=== PATIENT | male | born 1955 | race Caucasian/White ===

== ENCOUNTER 2024-08-20 18:20 | Inpatient (IN) ==
[2024-08-20 18:47] LABS: Basophils # (auto) 0.02 K/uL (0.00-0.20); Basophils % (auto) 0.1 %; Eosinophils # (auto) 0.01 K/uL (0.00-0.50); Eosinophils % (auto) 0.1 %; Hematocrit (blood only) 40.6 % (42.0-52.0); Hemoglobin 13.7 g/dl (14.0-18.0); Immature Granulocytes # (auto) 0.08 K/uL (0.01-0.20); Immature Granulocytes % (auto) 0.6 %; Lymphocytes # (auto) 2.26 K/uL (1.20-3.40); Lymphocytes % (auto) 16.3 %; Mean Corpuscular Hemoglobin 32.1 pg (25.0-34.0); Mean Corpuscular Hgb Conc 33.7 g/dL (32.0-36.0); Mean Corpuscular Volume 95.1 fL (80.0-100.0); Mean Platelet Volume 9.6 fL (9.4-12.4); Monocytes # (auto) 1.73 K/uL (0.11-0.59); Monocytes % (auto) 12.4 %; Neutrophils % (auto) 70.5 %; Platelet Count 223 K/uL (130-400); RDW Coefficient of Variation 12.8 % (11.5-14.5); RDW Standard Deviation 44.8 fL (36.4-46.3); Red Blood Count 4.27 M/uL (4.70-6.10)
[2024-08-20 19:03] LABS: Albumin Globulin Ratio 1.1 (0.9-2); Albumin Level 4.2 gm/dl (3.4-5.0); BUN Creatinine Ratio 12.2 (10-20); Bilirubin,Total 1.3 mg/dl (0.2-1.0); Calcium 9.3 mg/dl (8.6-10.3); Globulin 3.8 gm/dl (2.5-4.0); Potassium 4.2 mmol/L (3.5-5.1)
[2024-08-20 19:12] LABS: Partial Thromboplastin Ratio 1.1; Partial Thromboplastin Time 29 Seconds (21-31)
--- NOTE | 2024-08-20 20:00 | Emergency Department Note ---
Impression & Plan Cellulitis of right foot, Leukocytosis ED Provider Note NAME: WELLINGTON RIVAS AGE: 69 SEX: M : 1955 ARRIVES VIA: Walk-In INFORMANT: [Patient] ED PROVIDER(S): [Bhavesh Ornelas MD] CHIEF COMPLAINT: Foot pain, toe pain HISTORY OF PRESENT ILLNESS: The patient is a 69-year-old male with neuropathy. He states that he has had 5 days of some discomfort and redness forming in the right foot. Things started with the right first toe but now have spread to the whole foot. There is swelling and erythema, he has had some chills. He was seen at [facility] and referred to the ER for cellulitis and possible osteomyelitis/abscess. The patient states that he does have a blister that broke open on the underside of the right toe, he wonders if this is where things all started. There has been no trauma. He is on blood thinning agents because of pacemaker placement. He did not take his blood thinner yet this evening. No cough or congestion, no vomiting or diarrhea. PMHx/PSHx/Social Hx: See Below PHYSICAL EXAM: GENERAL: Patient is in no acute distress. HEENT: No acute trauma, normocephalic atraumatic, mucous membranes moist, no nasal congestion. NECK: No stridor, no adenopathy, no meningismus, trachea is midline. LUNGS: Clear to auscultation bilaterally, no wheeze, no rhonchi, breath sounds equal. HEART: Without murmurs gallops or rubs, regular rate and rhythm. ABDOMEN: Soft, nontender, no peritonitis. EXTREMITIES: No cyanosis. The patient does have right foot edema and erythema. There is warmth present. There is a opening in the skin to the underside of the right first toe. No gross deformities. No drainage. NEUROLOGIC: Oriented x 3, no acute motor or sensory deficits, no focal weakness. SKIN: No jaundice, no diaphoresis. DIFFERENTIAL DIAGNOSIS: Cellulitis, osteomyelitis, abscess, fracture, gout, among others. EMERGENCY DEPARTMENT PROCEDURES: MEDICAL DECISION MAKING: Patient does have a moderate leukocytosis, this would be consistent with infection. There is a very slight anemia with a hemoglobin of 13.7. There is a normal platelet count. No bandemia. No coagulopathy. No renal failure or significant electrolyte abnormality. No concerning liver enzyme elevation. Lactic acid level is not elevated making sepsis less likely. MRSA nasal swab was negative. Right foot x-ray did not show fracture or osteomyelitis. On exam, the patient had an obvious right foot cellulitis. There was significant swelling and erythema. The right first toe was the most inflamed and swollen. Right foot CT shows cellulitis with a potential small cyst or abscess near the first toe. Patient was given IV Zosyn, he was given 1 L of IV saline. The patient has a right foot cellulitis, possibly a small abscess. The infection is significant I do think requires IV antibiotic therapy. He may require orthopedic or podiatric intervention. I did speak with the patient and case management, the on-call hospitalist was consulted. Prior/Outside records/notes reviewed: None Imaging/x-ray results per my interpretation: Films of the right foot were performed, no fracture or osteomyelitis seen. Chronic Medical/Social conditions affecting care: Anticoagulated, history of pacemaker. Care/Management discussed with: Case management, the on-call hospitalist. Level of care consideration(s): After review of the information above and other included data: --I believe the patient requires escalation of care to admission DISPOSITION: Admission Past Med/Surg History Problem List Leukocytosis (Acute) Cellulitis of right foot (Acute) Medical History Anticoagulated Neuropathy Social History Smoking Status: Never smoker Preferred Language: Nepali Feels Safe at Home: Yes Allergies Allergies Allergy/AdvReac Type Severity Reaction Status Date / Time No Known Allergies Allergy Verified 08/20/24 20:21 Home Meds Home Medications Medication Instructions Recorded Confirmed amlodipine 5 mg tablet 5 mg PO QAM 08/20/24 08/20/24 apixaban 5 mg tablet (Eliquis) 5 mg PO BID 08/20/24 08/20/24 cyanocobalamin (vitamin B-12) 5,000 mcg sublingual DAILY 08/20/24 08/20/24 5,000 mcg sublingual tablet (Vitamin B-12) finasteride 5 mg tablet 5 mg PO QAM 08/20/24 08/20/24 losartan 100 mg tablet 100 mg PO QAM 08/20/24 08/20/24 metoprolol succinate 50 mg 50 mg PO QPM 08/20/24 08/20/24 tablet,extended release 24 hr vitamin B complex 1 cap PO QAM 08/20/24 08/20/24 Results & Data (ED) Vital Signs Vital Signs - 24 hr 08/20/24 18:25 08/20/24 20:39 Temperature 37.6 C H Temperature Source Temporal Artery Scan Pulse Rate 86 60 Pulse Rhythm Regular Pulse Strength Normal Respiratory Rate 18 Respiratory Effort / Characteristics Non-Labored Spontaneous Respiratory Depth Normal Respiratory Pattern Regular Blood Pressure 139/86 Blood Pressure Mean 103 Blood Pressure Position Sitting Pulse Oximetry 98 Oxygen Delivery Method Room Air Sepsis Recent Fever Within 48 Hours No Sepsis New/Unexplained Change in Mental Status N/A Sepsis Action Taken by Nursing No Action Required Home Medications Current Medication List: was personally reviewed by me Laboratory Data Attestation: I reviewed the patient's lab results. 08/20/24 18:32 08/20/24 18:32 Lab Results 08/20/24 08/20/24 Range/Units 18:32 19:57 WBC 13.90 H (4.8-10.8) K/ul RBC 4.27 L (4.70-6.10) M/uL Hgb 13.7 L (14.0-18.0) g/dl Hct 40.6 L (42.0-52.0) % MCV 95.1 (80.0-100.0) fL MCH 32.1 (25.0-34.0) pg MCHC 33.7 (32.0-36.0) g/dL RDW Std Deviation 44.8 (36.4-46.3) fL RDW Coeff of Yasir 12.8 (11.5-14.5) % Plt Count 223 (130-400) K/uL MPV 9.6 (9.4-12.4) fL Immature Gran % (Auto) 0.6 % Neut % (Auto) 70.5 % Lymph % (Auto) 16.3 % [place] % (Auto) 12.4 % Eos % (Auto) 0.1 % Baso % (Auto) 0.1 % Neut # (Auto) 9.80 H (1.40-6.50) K/uL Lymph # (Auto) 2.26 (1.20-3.40) K/uL [place] # (Auto) 1.73 H (0.11-0.59) K/uL Eos # (Auto) 0.01 (0.00-0.50) K/uL Baso # (Auto) 0.02 (0.00-0.20) K/uL Immature Gran # (Auto) 0.08 (0.01-0.20) K/uL PT 11.0 (9.0-12.0) Seconds INR 1.0 (0.9-1.1) APTT 29 (21-31) Seconds PTT Ratio 1.1 Sodium 133 L (136-145) mmol/L Potassium 4.2 (3.5-5.1) mmol/L Chloride 99 (98-107) mmol/L Carbon Dioxide 26 (21-32) mmol/L Anion Gap 8 (3-11) BUN 12 (6-23) mg/dl Creatinine 0.98 (0.6-1.4) mg/dl Est Cr Clr Drug Dosing 85.0 ml/min eGFR 84.52 BUN/Creatinine Ratio 12.2 (10-20) Glucose 122 H (70-99(Fasting)) mg/dl Lactate 1.3 (0.4-2.0) mmol/L Calcium 9.3 (8.6-10.3) mg/dl Total Bilirubin 1.3 H (0.2-1.0) mg/dl AST 26 (13-39) U/L ALT 16 (7-52) U/L Alkaline Phosphatase 67 (34-104) U/L Total Protein 8.0 (6.0-8.3) gm/dl Albumin 4.2 (3.4-5.0) gm/dl Globulin 3.8 (2.5-4.0) gm/dl Albumin/Globulin Ratio 1.1 (0.9-2) Nasal Screen MRSA (PCR) Negative (Negative) Administered Medications Discontinued Medications Piperacillin Sod/Tazobactam Sod (Zosyn) 4.5 gm in 100 mls @ 200 mls/hr IV NOW ONE Stop: 08/20/24 20:16 Last Admin: 08/20/24 20:29 Dose: 200 mls/hr Documented By: ABBEY Sodium Chloride (Nss) 1,000 mls @ 999 mls/hr IV .Q1H1M ONE Stop: 08/20/24 20:50 Last Admin: 08/20/24 20:30 Dose: 999 mls/hr Documented By: ABBEY Ioversol (Optiray 320 100ml) 93 ml IV ONCE ONE Stop: 08/20/24 20:23 Last Admin: 08/20/24 20:22 Dose: 93 ml Documented By: MELISSA Imaging Data Radiologist's Impression: Foot X-Ray 08/20/24 18:41 INDICATION: Pain TECHNIQUE: 3 views of the right foot were obtained. COMPARISON: None FINDINGS: No displaced acute osseous process is identified. There is soft tissue swelling of the hallux and the forefoot particularly along its dorsal surface. No definite marrow abnormality suspicious for osteomyelitis is identified in these radiographs. Soft tissue bunion over the hallux MTP with moderate degeneration of the MTP joint. IMPRESSION: Soft tissue swelling of the hallux and the forefoot without definite radiographic marrow abnormality to suggest osteomyelitis. However if clinical symptoms warrant, MRI may offer a more sensitive evaluation. Electronically signed by Carlos Lazo 08-20-2024 8:[address] 08/20/24 19:50 Exam(s): CT RIGHT FOOT With Contrast IV Amt: 93ml optiray 320 EXAM: CT Right Lower Extremity With Intravenous Contrast, Foot CLINICAL HISTORY: Reason for exam: poss osteo or abscess. TECHNIQUE: Axial computed tomography images of the right foot with intravenous contrast. CTDI is 6.03 mGy and DLP is 155.55 mGy-cm. Automated exposure control was utilized for the study. A dose lowering technique was utilized adhering to the principles of ALARA. CONTRAST: Patient received 93ml optiray 320 of IV contrast COMPARISON: Right foot radiographs 08/20/2024 FINDINGS: Bones/joints: 1st MTP joint osteoarthritis. No acute fracture or dislocation. No osseous erosions to suggest osteomyelitis by CT. Peripherally enhancing fluid collection measuring 0.9 x 2.5 x 2.3 cm along the dorsal-medial aspect of the 1st MTP joint (series 400, image 17; series 401, image 39; series 401, image 43). Soft tissues: Diffuse subcutaneous edema , most pronounced along the great toe. No radiopaque foreign body. IMPRESSION: There is diffuse subcutaneous edema, most pronounced along the great toe, suggesting cellulitis. 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 No CT-evident erosions are identified at the joint space or elsewhere within the foot to definitively suggest osteomyelitis by CT. Peripherally enhancing fluid collection measuring 0.9 x 2.5 x 2.3 cm along the dorsal-medial aspect of the 1st MTP joint. This could represent fluid-distended 1st MTP joint space versus soft tissue abscess. Electronically signed by: Rich Gill M.D. 08/20/24 21:26 PM Discharge Plan Visit Data Chief Complaint: Toe Injury/Pain Stated Complaint: INFECTED TOE RT ED Provider: Bhavesh Ornelas Discharge Problem: Cellulitis of right foot, Leukocytosis Patient Disposition: Admitted As Inpatient Condition: Fair Forms Stand Alone Forms: My [facility] Prescriptions Prescriptions: No Action metoprolol succinate 50 mg tablet extended release 24 hr 50 mg PO QPM amlodipine 5 mg tablet 5 mg PO QAM losartan 100 mg tablet 100 mg PO QAM finasteride 5 mg tablet 5 mg PO QAM vitamin B complex [B Complex] Capsule 1 cap PO QAM cyanocobalamin (vitamin B-12) [Vitamin B-12] 5,000 mcg Tablet, Sublingual 5,000 mcg SUBLINGUAL DAILY Eliquis 5 mg tablet 5 mg PO BID Rx Instructions: PER PT "TOLD NOT TO TAKE PM DOSE". 08/20/24 Referrals Referrals: PCP,NO [Physician] - Discharge Problem: Leukocytosis Qualifiers: Leukocytosis type: unspecified Qualified Code(s): D72.829 - Elevated white blood cell count, unspecified
--- NOTE | 2024-08-20 20:07 | XRay Report ---
INDICATION: Pain TECHNIQUE: 3 views of the right foot were obtained. COMPARISON: None FINDINGS: No displaced acute osseous process is identified. There is soft tissue swelling of the hallux and the forefoot particularly along its dorsal surface. No definite marrow abnormality suspicious for osteomyelitis is identified in these radiographs. Soft tissue bunion over the hallux MTP with moderate degeneration of the MTP joint. IMPRESSION: Soft tissue swelling of the hallux and the forefoot without definite radiographic marrow abnormality to suggest osteomyelitis. However if clinical symptoms warrant, MRI may offer a more sensitive evaluation. Electronically signed by Carlos Lazo 08-20-2024 8:06 PM
--- NOTE | 2024-08-20 21:14 | History & Physical Report ---
Date of Service August 20, 2024 Assessment & Plan (1) Cellulitis of right foot: Plan: 69-year-old male unassigned patient with past medical history significant for hypertension, A-fib, history of heart block status post pacemaker, history of BPH presents with right foot infection. Patient states had a wound in the posterior aspect of the right big toe going on for last 3 weeks. Since last Friday he noticed swelling and redness in the right big toe and it seemed better on Friday but then it got progressively worse and came to the hospital. He says he had a history of gout attack long-term back in his left big toe. He has neuropathy in lower extremities. But with ambulating is having a lot of pain. He had low-grade fevers couple of times during lst few days. Denies any headache or dizziness. No runny nose or sore throat. No cough. No earaches. Appetite is okay. No difficulty swallowing. No chest pains. Currently no shortness of breath. No nausea. No abdominal pain. Normal bowel and bladder movements. Resting comfortably and hemodynamics are okay. Cellulitis of right foot Ulcer under the right big toe Will follow CAT scan will check uric acid levels Empiric Zosyn and Vanco Will consult Orthopedics in a.m. for further recommendations History of A-fib Continue metoprolol succinate Hold Eliquis for now If no procedure planned we will restart Eliquis History of heart block Status post pacemaker Hypertension On amlodipine, losartan and metoprolol succinate Will monitor History of BPH Finasteride DVT prophylaxis SCDs for now Disposition Medical floor Full code. History of Present Illness Chief Complaint: Right foot infection Primary Care Provider: Christiano Vides MD 69-year-old male unassigned patient with past medical history significant for hypertension, A-fib, history of heart block status post pacemaker, history of BPH presents with right foot infection. Patient states had a wound in the posterior aspect of the right big toe going on for last 3 weeks. Since last Friday he noticed swelling and redness in the right big toe and it seemed better on Friday but then it got progressively worse and came to the hospital. He says he had a history of gout attack long-term back in his left big toe. He has neuropathy in lower extremities. But with ambulating is having a lot of pain. He had low-grade fevers couple of times during lst few days. Denies any headache or dizziness. No runny nose or sore throat. No cough. No earaches. Appetite is okay. No difficulty swallowing. No chest pains. Currently no shortness of breath. No nausea. No abdominal pain. Normal bowel and bladder movements. Resting comfortably and hemodynamics are okay. Past medical history. As mentioned above Past surgical history. Status post pacemaker. Status post TURP. Bunion surgery in the left big toe. Social history. No smoking. Drinks couple of drinks 4 times a week. No drug use currently. Did drugs couple of times in his 20s. Family history. Father had prostate cancer. Heart disease. Throat cancer. Allergies Allergy/AdvReac Type Severity Reaction Status Date / Time No Known Allergies Allergy Verified 08/20/24 20:21 Home Medications Medication Instructions Recorded Confirmed Type amlodipine 5 mg tablet 5 mg PO QAM 08/20/24 08/20/24 History apixaban 5 mg tablet (Eliquis) 5 mg PO BID 08/20/24 08/20/24 History cyanocobalamin (vitamin B-12) 5,000 mcg sublingual DAILY 08/20/24 08/20/24 History 5,000 mcg sublingual tablet (Vitamin B-12) finasteride 5 mg tablet 5 mg PO QAM 08/20/24 08/20/24 History losartan 100 mg tablet 100 mg PO QAM 08/20/24 08/20/24 History metoprolol succinate 50 mg 50 mg PO QPM 08/20/24 08/20/24 History tablet,extended release 24 hr vitamin B complex 1 cap PO QAM 08/20/24 08/20/24 History Past Med/Surg History Problem List Leukocytosis (Acute) Cellulitis of right foot (Acute) Medical History Anticoagulated Neuropathy Social History Smoking Status: Never smoker Second Hand Exposure: No; Do You Dip or Chew Tobacco: No; Tobacco Cessation Education Requested by Patient: No Hx Alcohol Use: Yes Alcohol type: beer and hard liquor Hx Substance Use: No Preferred Language: Spanish Communication Ability: Effective Glass Toughening Operator Required: No Beliefs That Will Affect Care: None Current Living Situation: Alone Other Information That Helps Us Care for You: No Feels Safe at Home: Yes Safety Concerns: Feels Safe At This Time Assistive Devices: None Review of Systems Review of Systems: All systems reviewed & are unremarkable except as noted in HPI & below Physical Exam Physical Exam: General- Not in acute distress Head- atraumatic Eyes- PERRL. ENT- oropharynx clear Neck- supple, no JVD. Lungs- clear to auscultation no wheezing or crackles Heart- regular rhythm; no murmur, no gallop. Abdomen- normal bowel sounds, soft, nontender, no distension Extremities- right foot distal medial aspect warm and erythematous and right big toe is swollen Neuro- alert, oriented PERRL, no facial palsy; no dysarthria; moves extremities Results & Data Results & Data Vital Signs (Past 12 Hours) Vital Signs Temp Pulse Resp BP Pulse Ox O2 Del Method 08/20/24 20:39 60 08/20/24 18:25 37.6 C H 86 18 139/86 98 Room Air Diagnostic Findings Laboratory Results WBC 13.90 K/ul (4.8-10.8) H 08/20/24 18:32 RBC 4.27 M/uL (4.70-6.10) L 08/20/24 18:32 Hgb 13.7 g/dl (14.0-18.0) L 08/20/24 18:32 Hct 40.6 % (42.0-52.0) L 08/20/24 18:32 MCV 95.1 fL (80.0-100.0) 08/20/24 18:32 MCH 32.1 pg (25.0-34.0) 08/20/24 18:32 MCHC 33.7 g/dL (32.0-36.0) 08/20/24 18:32 RDW Std Deviation 44.8 fL (36.4-46.3) 08/20/24 18:32 RDW Coeff of Yasir 12.8 % (11.5-14.5) 08/20/24 18:32 Plt Count 223 K/uL (130-400) 08/20/24 18:32 MPV 9.6 fL (9.4-12.4) 08/20/24 18:32 Immature Gran % (Auto) 0.6 % 08/20/24 18:32 Neut % (Auto) 70.5 % 08/20/24 18:32 Lymph % (Auto) 16.3 % 08/20/24 18:32 [place] % (Auto) 12.4 % 08/20/24 18:32 Eos % (Auto) 0.1 % 08/20/24 18:32 Baso % (Auto) 0.1 % 08/20/24 18:32 Neut # (Auto) 9.80 K/uL (1.40-6.50) H 08/20/24 18:32 Lymph # (Auto) 2.26 K/uL (1.20-3.40) 08/20/24 18:32 [place] # (Auto) 1.73 K/uL (0.11-0.59) H 08/20/24 18:32 Eos # (Auto) 0.01 K/uL (0.00-0.50) 08/20/24 18:32 Baso # (Auto) 0.02 K/uL (0.00-0.20) 08/20/24 18:32 Immature Gran # (Auto) 0.08 K/uL (0.01-0.20) 08/20/24 18:32 PT 11.0 Seconds (9.0-12.0) 08/20/24 18:32 INR 1.0 (0.9-1.1) 08/20/24 18:32 APTT 29 Seconds (21-31) 08/20/24 18:32 PTT Ratio 1.1 08/20/24 18:32 Sodium 133 mmol/L (136-145) L 08/20/24 18:32 Potassium 4.2 mmol/L (3.5-5.1) 08/20/24 18:32 Chloride 99 mmol/L (98-107) 08/20/24 18:32 Carbon Dioxide 26 mmol/L (21-32) 08/20/24 18:32 Anion Gap 8 (3-11) 08/20/24 18:32 BUN 12 mg/dl (6-23) 08/20/24 18:32 Creatinine 0.98 mg/dl (0.6-1.4) 08/20/24 18:32 Est Cr Clr Drug Dosing 85.0 ml/min 08/20/24 18:32 eGFR 84.52 08/20/24 18:32 BUN/Creatinine Ratio 12.2 (10-20) 08/20/24 18:32 Glucose 122 mg/dl (70-99(Fasting)) H 08/20/24 18:32 Lactate 1.3 mmol/L (0.4-2.0) 08/20/24 19:57 Calcium 9.3 mg/dl (8.6-10.3) 08/20/24 18:32 Total Bilirubin 1.3 mg/dl (0.2-1.0) H 08/20/24 18:32 AST 26 U/L (13-39) 08/20/24 18:32 ALT 16 U/L (7-52) 08/20/24 18:32 Alkaline Phosphatase 67 U/L (34-104) 08/20/24 18:32 Total Protein 8.0 gm/dl (6.0-8.3) 08/20/24 18:32 Albumin 4.2 gm/dl (3.4-5.0) 08/20/24 18:32 Globulin 3.8 gm/dl (2.5-4.0) 08/20/24 18:32 Albumin/Globulin Ratio 1.1 (0.9-2) 08/20/24 18:32 Nasal Screen MRSA (PCR) Negative (Negative) 08/20/24 19:57 Impressions Foot X-Ray 08/20/24 18:41 INDICATION: Pain TECHNIQUE: 3 views of the right foot were obtained. COMPARISON: None FINDINGS: No displaced acute osseous process is identified. There is soft tissue swelling of the hallux and the forefoot particularly along its dorsal surface. No definite marrow abnormality suspicious for osteomyelitis is identified in these radiographs. Soft tissue bunion over the hallux MTP with moderate degeneration of the MTP joint. IMPRESSION: Soft tissue swelling of the hallux and the forefoot without definite radiographic marrow abnormality to suggest osteomyelitis. However if clinical symptoms warrant, MRI may offer a more sensitive evaluation. Electronically signed by Carlos Lazo 08-20-2024 8:06 PM Code Status & VTE Plan VTE Prophylaxis Plan VTE Prophylaxis will be ordered: Yes
--- NOTE | 2024-08-20 21:26 | CT Scan Report ---
Exam(s): CT RIGHT FOOT With Contrast IV Amt: 93ml optiray 320 EXAM: CT Right Lower Extremity With Intravenous Contrast, Foot CLINICAL HISTORY: Reason for exam: poss osteo or abscess. TECHNIQUE: Axial computed tomography images of the right foot with intravenous contrast. CTDI is 6.03 mGy and DLP is 155.55 mGy-cm. Automated exposure control was utilized for the study. A dose lowering technique was utilized adhering to the principles of ALARA. CONTRAST: Patient received 93ml optiray 320 of IV contrast COMPARISON: Right foot radiographs 08/20/2024 FINDINGS: Bones/joints: 1st MTP joint osteoarthritis. No acute fracture or dislocation. No osseous erosions to suggest osteomyelitis by CT. Peripherally enhancing fluid collection measuring 0.9 x 2.5 x 2.3 cm along the dorsal-medial aspect of the 1st MTP joint (series 400, image 17; series 401, image 39; series 401, image 43). Soft tissues: Diffuse subcutaneous edema , most pronounced along the great toe. No radiopaque foreign body. IMPRESSION: There is diffuse subcutaneous edema, most pronounced along the great toe, suggesting cellulitis. 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 No CT-evident erosions are identified at the joint space or elsewhere within the foot to definitively suggest osteomyelitis by CT. Peripherally enhancing fluid collection measuring 0.9 x 2.5 x 2.3 cm along the dorsal-medial aspect of the 1st MTP joint. This could represent fluid-distended 1st MTP joint space versus soft tissue abscess. Electronically signed by: Rich Gill M.D. 08/20/24 21:26 PM
[2024-08-21 06:35] LABS: Basophils # (auto) 0.02 K/uL (0.00-0.20); Basophils % (auto) 0.2 %; Eosinophils # (auto) 0.03 K/uL (0.00-0.50); Eosinophils % (auto) 0.3 %; Hematocrit (blood only) 33.8 % (42.0-52.0); Hemoglobin 11.6 g/dl (14.0-18.0); Immature Granulocytes # (auto) 0.04 K/uL (0.01-0.20); Immature Granulocytes % (auto) 0.4 %; Lymphocytes # (auto) 1.79 K/uL (1.20-3.40); Lymphocytes % (auto) 16.4 %; Mean Corpuscular Hemoglobin 32.5 pg (25.0-34.0); Mean Corpuscular Hgb Conc 34.3 g/dL (32.0-36.0); Mean Corpuscular Volume 94.7 fL (80.0-100.0); Mean Platelet Volume 9.9 fL (9.4-12.4); Monocytes % (auto) 13.7 %; Neutrophils # (auto) 7.56 K/uL (1.40-6.50); Platelet Count 183 K/uL (130-400); RDW Coefficient of Variation 12.7 % (11.5-14.5); RDW Standard Deviation 44.2 fL (36.4-46.3); Red Blood Count 3.57 M/uL (4.70-6.10); White Blood Count 10.94 K/ul (4.8-10.8)
[2024-08-21 06:57] LABS: BUN Creatinine Ratio 13.6 (10-20); Calcium 8.2 mg/dl (8.6-10.3); Creatinine Clr Calc Pharmacy 104.3 ml/min; Magnesium 1.9 mg/dl (1.7-2.4)
[2024-08-21 08:06] LABS: Uric Acid 4.3 mg/dl (2.6-7.2)
--- NOTE | 2024-08-21 08:30 | Hospitalist Progress Note ---
Date of Service August 21, 2024 Assessment & Plan (1) Cellulitis of right foot: Plan: This is a 69-year-old male unassigned patient with past medical history significant for hypertension, A-fib, history of heart block status post pacemaker, history of BPH presents with right foot infection. Cellulitis of right foot Ulcer under the right big toe Non-toxic appearance, Leukocytosis downtrending from 13.7 -> 11.6 CT foot with diffuse subcutaneous edema, most pronounced along the great toe, suggesting cellulitis Patient seen during needle aspiration at bedside by Dr. Soto - approx 1cc bloody fluid aspirated and sent for culture Ddx: infection vs gouty effusion Continue empiric IV abx coverage with Zosyn and vanco for at least 24 hrs, await culture results Elevate foot, WBAT through heel. Unlikely to need surgical debridement but ortho recommending NPO at midnight in case If gout, NSAIDs contraindicated as on Eliquis, would consider colchicine course Okay to resume Eliquis History of A-fib Continue metoprolol succinate Eliquis resumed today History of heart block Status post pacemaker Hypertension Continue amlodipine, losartan and metoprolol succinate History of BPH Continue Finasteride DVT prophylaxis: SCDs for now Code: FULL Disposition: admitted to med/surg, possible dc tomorrow on PO abx, awaiting cult ure Care coordinated with Dr. Meza I spent a total of 50 minutes coordinating, documenting, and providing care for this patient excluding time spent in the performance of separately billed ser vices or time spent by another provider/QHP. Admission and Anticipated Discharge Date Admission Date: August 20, 2024 Supervising Physician Co-Signing Physician Notes Patient presenting with right foot cellulitis. Effusion was aspirated by ortho, appreciate assistance. No organisms seen on smear, wound culture pending. Could be gout vs. pseudogout vs. septic arthritis vs. osteoarthritic effusion. Has soft tissue cellulitis. Will continue abx for 24 hours and then consider transition to oral regiment. I have discussed the case with the collaborating advanced practitioner. I agree with the above H&P. I have reviewed and confirmed the patients medical history, the findings on physical examination, and the patients diagnosis and treatment plan with Lizette Raman PA-C and agree with the information documented. I spent a total of 15 minutes coordinating, documenting, and providing care for this patient excluding time spent in the performance of separately billed services. All of the aforementioned completed outside of collaborating with the assigned advanced practitioner for a full treatment plan. I have reviewed the advanced practitioner's documentation, and I agree with, and take responsibility for the plan of care Subjective Seen and examined in 384-2. Noted blister on plantar aspect of big toe 3 weeks ago but has become progressively more red and swollen in past few days. Was at a music festival yesterday and toe became more swollen and painful so presented to Urgent care locally and was directed to ED for further evaluation. Denies F/C, CP, SOB, N/V, abd pain, dysuria, diarrhea or constipation. Review of Systems Review of Systems: At least ten systems reviewed and negative except as noted in the HPI. Physical Exam Physical Exam: Gen: WD/WN, NAD, resting in bed comfortably, A&Ox3 HEENT: Normocephalic, atraumatic, conjunctivae moist, sclerae anicteric, mucous membranes moist Lung: Clear to Auscultation bilaterally Heart: Regular rate, regular rhythm Abdomen: Soft, NT, ND +BS x 4 Extremities: + R great toe erythematous, warm and area of fluctuance proximal to great toe on dorsal aspect Skin: Warm, no rash Results & Data Results & Data Vital Signs (Past 12 Hours) Vital Signs Temp Pulse Pulse Resp BP BP Pulse Ox 08/21/24 07:51 37.2 C 60 18 118/78 97 08/20/24 22:45 36.9 C 59 L 16 127/85 98 08/20/24 21:55 08/20/24 21:30 60 21 120/81 99 08/20/24 21:00 60 22 124/85 98 08/20/24 20:39 60 O2 Del Method 08/21/24 07:51 Room Air 08/20/24 22:45 Room Air 08/20/24 21:55 Room Air 08/20/24 21:30 Room Air 08/20/24 21:00 Room Air 08/20/24 20:39 Laboratory Results Short CBC 08/20/24 08/21/24 Range/Units 18:32 06:07 WBC 13.90 H 10.94 H (4.8-10.8) K/ul Hgb 13.7 L 11.6 L (14.0-18.0) g/dl Hct 40.6 L 33.8 L (42.0-52.0) % Plt Count 223 183 (130-400) K/uL BMP 08/20/24 08/21/24 18:32 06:07 Sodium 133 L 135 L Potassium 4.2 4.0 Chloride 99 105 Carbon Dioxide 26 23 BUN 12 12 Creatinine 0.98 0.88 Glucose 122 H 122 H Calcium 9.3 8.2 L Liver Function 08/20/24 Range/Units 18:32 Total Bilirubin 1.3 H (0.2-1.0) mg/dl AST 26 (13-39) U/L ALT 16 (7-52) U/L Alkaline Phosphatase 67 (34-104) U/L Albumin 4.2 (3.4-5.0) gm/dl Diagnostic Findings Foot X-Ray 08/20/24 18:41 INDICATION: Pain TECHNIQUE: 3 views of the right foot were obtained. COMPARISON: None FINDINGS: No displaced acute osseous process is identified. There is soft tissue swelling of the hallux and the forefoot particularly along its dorsal surface. No definite marrow abnormality suspicious for osteomyelitis is identified in these radiographs. Soft tissue bunion over the hallux MTP with moderate degeneration of the MTP joint. IMPRESSION: Soft tissue swelling of the hallux and the forefoot without definite radiographic marrow abnormality to suggest osteomyelitis. However if clinical symptoms warrant, MRI may offer a more sensitive evaluation. Electronically signed by Carlos Lazo 08-20-2024 8:[address] 08/20/24 19:50 Exam(s): CT RIGHT FOOT With Contrast IV Amt: 93ml optiray 320 EXAM: CT Right Lower Extremity With Intravenous Contrast, Foot CLINICAL HISTORY: Reason for exam: poss osteo or abscess. TECHNIQUE: Axial computed tomography images of the right foot with intravenous contrast. CTDI is 6.03 mGy and DLP is 155.55 mGy-cm. Automated exposure control was utilized for the study. A dose lowering technique was utilized adhering to the principles of ALARA. CONTRAST: Patient received 93ml optiray 320 of IV contrast COMPARISON: Right foot radiographs 08/20/2024 FINDINGS: Bones/joints: 1st MTP joint osteoarthritis. No acute fracture or dislocation. No osseous erosions to suggest osteomyelitis by CT. Peripherally enhancing fluid collection measuring 0.9 x 2.5 x 2.3 cm along the dorsal-medial aspect of the 1st MTP joint (series 400, image 17; series 401, image 39; series 401, image 43). Soft tissues: Diffuse subcutaneous edema , most pronounced along the great toe. No radiopaque foreign body. IMPRESSION: There is diffuse subcutaneous edema, most pronounced along the great toe, suggesting cellulitis. 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 No CT-evident erosions are identified at the joint space or elsewhere within the foot to definitively suggest osteomyelitis by CT. Peripherally enhancing fluid collection measuring 0.9 x 2.5 x 2.3 cm along the dorsal-medial aspect of the 1st MTP joint. This could represent fluid-distended 1st MTP joint space versus soft tissue abscess. Electronically signed by: Rich Gill M.D. 08/20/24 21:26 PM
--- NOTE | 2024-08-21 09:39 | Orthopedic Consultation ---
Date of Service August 21, 2024 Assessment & Plan (1) Effusion of right foot joint: 69-year-old male with a history of gout years ago admitted with progressively worsening foot pain localized to the first MTP joint with dorsal swelling and erythema. Differential unlikely joint sepsis versus gouty effusion. He did have a 12 mile walk which incited the progressive pain. He has a history of neuropathy as well. The CT identified small fluid collection was palpable and targeted with a needle aspiration at the bedside which she tolerated fairly well. Approximately 1 cc of thickened synovial and bloody fluid was aspirated. Cannot exclude an infection by the appearance. Recommend at least 24 hours of empiric antibiotics and elevation of the foot. Will await culture results. With a decompressed abscess and good antibiotics, he may escape indications for surgical debridement. Just as likely, this is g out and he can proceed with anti-inflammatory treatment. In the interim, he can be weightbearing as tolerated through the heel. Probably best to keep n.p.o. after midnight again tonight. History of Present Illness Reason for Consultation: . Requesting Physician: . Attending Physician: Larry Meza MD 69-year-old male admitted overnight with progressively painful and red first metatarsal phalangeal joint. He had a history of gout and neuropathy. He has not had a gout attack in years. He was seen at [facility] for presumed gout, but they were concerned of infection so he was sent to the ER. He was admitted for elevation of the antibiotics. No history of infections in this foot. No history of diabetes. Allergies Allergy/AdvReac Type Severity Reaction Status Date / Time No Known Allergies Allergy Verified 08/20/24 20:21 Home Medications Medication Instructions Recorded Confirmed Type amlodipine 5 mg tablet 5 mg PO QAM 08/20/24 08/20/24 History apixaban 5 mg tablet (Eliquis) 5 mg PO BID 08/20/24 08/20/24 History cyanocobalamin (vitamin B-12) 5,000 mcg sublingual DAILY 08/20/24 08/20/24 History 5,000 mcg sublingual tablet (Vitamin B-12) finasteride 5 mg tablet 5 mg PO QAM 08/20/24 08/20/24 History losartan 100 mg tablet 100 mg PO QAM 08/20/24 08/20/24 History metoprolol succinate 50 mg 50 mg PO QPM 08/20/24 08/20/24 History tablet,extended release 24 hr vitamin B complex 1 cap PO QAM 08/20/24 08/20/24 History Past Med/Surg History Problem List Effusion of right foot joint Leukocytosis (Acute) Cellulitis of right foot (Acute) Medical History Anticoagulated Neuropathy Social History Smoking Status: Never smoker Second Hand Exposure: No; Do You Dip or Chew Tobacco: No; Tobacco Cessation Education Requested by Patient: No Hx Alcohol Use: Yes Alcohol type: beer and hard liquor Hx Substance Use: No Preferred Language: [place]an Communication Ability: Effective Specification Consultant Required: No Beliefs That Will Affect Care: None Current Living Situation: Alone Other Information That Helps Us Care for You: No Feels Safe at Home: Yes Safety Concerns: Feels Safe At This Time Assistive Devices: None Review of Systems All systems reviewed & are unremarkable except as noted in HPI & below. Physical Exam Right foot: Obvious edema about the first metatarsal phalangeal joint with surrounding mild erythema. Isolated to the forefoot. Tender to palpation about the swollen erythematous MTP joint. Toe is well-perfused. No skin compromise of the edematous area. On the plantar aspect of the great toe, there is a healing blister and skin cracking at the fold. There is no active drainage in this area and appears nonedematous. The process seems to be more about the joints on the dorsal side. There is some skin congestion. Constitutional WD/WN, vitals as above no acute distress and not intoxicated appearing Respiratory normal respiratory effort; no labored breathing Cardiovascular Extremities: normal capillary refill Results & Data Results & Data Laboratory Results . Diagnostic Findings H & H 08/20/24 08/21/24 Range/Units 18:32 06:07 Hgb 13.7 L 11.6 L (14.0-18.0) g/dl Hct 40.6 L 33.8 L (42.0-52.0) % Coagulation 08/20/24 Range/Units 18:32 INR 1.0 (0.9-1.1) PG Care Time/CCT Total # of Minutes Spent Total Time Spent with Patient: Total time spent is greater than 50% in coordination of care (as documented) at patient's floor/unit and/or counseling patient: Coding Level of Care Code 72030 IN/OBS CONSULT LVL 4,60M Diagnoses Effusion of right foot joint M25.474
--- NOTE | 2024-08-21 09:42 | Procedure Note ---
Procedure Note Date of Service August 21, 2024 Right first MTP joint aspiration I discussed the CT findings and the likelihood of a fluid collection just under the skin on the dorsal side of his great toe. I explained the procedure of prepping the skin with alcohol and inserting the needle. I explained that lidocaine injection first will likely only challenge the congested skin and not be very effective. He was agreeable to proceed with an aspiration attempt. The dorsal side of his first MTP joint was prepped thoroughly with an alcohol swab. An 22-gauge hypodermic needle was then inserted into the ballotable area. There was a reflux of approximately 1 cc of yellow thickened synovial fluid that appeared almost purulent with additional blood and clear serous fluid. Could be consistent with gout or infection. I then massaged the area after removing the needle it was able to express a few more cc of fluid which was mostly serous. He tolerated the procedure fairly well. The site was dressed with gauze and a Coban wrap. This can be removed in a few hours. The fluid was transferred into a sterile specimen cup and sent to lab for culture and count. Coding Additional Codes Date of Service (PG.SURGERY)
--- NOTE | 2024-08-21 10:53 | Pharmacy Report ---
Pharmacy PK ABX Note - Date of Service August 21, 2024 - Assessment and Plan Assessment * 69 year old M receiving pip/tazo and vanco for treatment of R foot infection. * Pertinent microbiologic data includes: blood and R foot cultures pending * SCr stable and at/near baseline Plan Vancomycin * Loading dose: 2000 mg IV x 1 * Maintenance dose: 1250 mg IV every 12 hours * Regimen is predicted to achieve target AUC/KIM of 400-600 mg/L.hr * Random level ordered for 08/23 @ 0800 Pharmacy will continue to follow and will adjust dose/frequency as necessary. Thank you. Pharmacy has transitioned to AUC monitoring for vancomycin. AUC/KIM is the preferred PK/PD target and is associated with decreased risk of nephrotoxicity compared to traditional trough targets.
[2024-08-21 20:10] VITALS: RESP 16
[2024-08-22 06:52] LABS: BUN Creatinine Ratio 10.4 (10-20); Calcium 8.5 mg/dl (8.6-10.3); Creatinine Clr Calc Pharmacy 86.6 ml/min; Potassium 4.1 mmol/L (3.5-5.1)
[2024-08-22 06:58] LABS: Hematocrit (blood only) 34.3 % (42.0-52.0); Hemoglobin 11.6 g/dl (14.0-18.0); Mean Corpuscular Hemoglobin 32.2 pg (25.0-34.0); Mean Corpuscular Hgb Conc 33.8 g/dL (32.0-36.0); Mean Corpuscular Volume 95.3 fL (80.0-100.0); Platelet Count 183 K/uL (130-400); RDW Coefficient of Variation 12.5 % (11.5-14.5); RDW Standard Deviation 44.1 fL (36.4-46.3); White Blood Count 9.67 K/ul (4.8-10.8)
[2024-08-22 07:36] VITALS: BP 122/82; PULSE 67; TEMP 98.6; O2SAT 98
--- NOTE | 2024-08-22 11:01 | Orthopedic Progress Note ---
Date of Service August 22, 2024 Assessment & Plan (1) Effusion of right foot joint: Plan Clinically, this looks to be a gouty effusion. I would recommend discharge to oral therapy for both gout and antibiotic coverage until he follows up closer to home. I counseled him that it may worsen and he would have to seek care locally. He may ultimately need an I&D but I do not suspect this will happen. Certainly there is no indication to do a surgery today. Recommend treating for gout and localized soft tissue infection or cellulitis. He can be weightbearing as tolerated. I encouraged him to follow-up with his primary care provider this week. If the culture results grow a pathogen, we can contact him by phone and notify his primary care. Subjective Reports pain has not worsened. Feels well. No reactions to the antibiotic. Review of Systems All systems reviewed & are unremarkable except as noted in HPI & below. Physical Exam Right foot: The erythema really has not changed but it is much less edematous to the skin. The aspiration site is healed over. No erythema to his great toe distal phalanx area. Process looks to be isolated to the first MTP. Remains tender but not worse than yesterday. Constitutional WD/WN, vitals as above no acute distress and not intoxicated appearing Respiratory normal respiratory effort; no labored breathing Cardiovascular Extremities: normal capillary refill Results & Data Results & Data Laboratory Results WBC has normalized Microbiology 08/20/24 19:57 Aerobic Blood Culture - Preliminary Blood No growth in Aerobic bottle after 24 hours. Anaerobic Blood Culture - Preliminary No growth in Anaerobic bottle after 24 hours. 08/20/24 20:13 Aerobic Blood Culture - Preliminary Blood No growth in Aerobic bottle after 24 hours. Anaerobic Blood Culture - Preliminary No growth in Anaerobic bottle after 24 hours. 08/21/24 10:25 Gram Stain - Final Foot,Right H & H 08/20/24 08/21/24 08/22/24 Range/Units 18:32 06:07 06:00 Hgb 13.7 L 11.6 L 11.6 L (14.0-18.0) g/dl Hct 40.6 L 33.8 L 34.3 L (42.0-52.0) % Coagulation 08/20/24 Range/Units 18:32 INR 1.0 (0.9-1.1) Diagnostic Findings Crystals remain pending. Cultures with no growth reported yet PG Care Time/CCT Total # of Minutes Spent Total Time Spent with Patient: Total time spent is greater than 50% in coordination of care (as documented) at patient's floor/unit and/or counseling patient: Coding Level of Care Code 34451 SUB INP/OBS CARE 3/50MIN Diagnoses Effusion of right foot joint M25.474
--- NOTE | 2024-08-22 12:39 | Discharge Summary ---
Discharge Summary Date of Service August 22, 2024 Principal Dx & Hospital Course #1 = Principal Diagnosis (1) Cellulitis of right foot: This is a 69-year-old male unassigned patient with past medical history significant for hypertension, A-fib, history of heart block status post pacemaker, history of BPH presents with right foot cellulitis and suspected gout flare. Cellulitis of right foot Ulcer under the right big toe Non-toxic appearance, initial leukocytosis of 13.7 has normalized on antibiotics CT foot with diffuse subcutaneous edema, most pronounced along the great toe, suggesting cellulitis Underwent needle aspiration at bedside by Dr. Soto on 08/21 - approx 1cc bloody fluid aspirated and sent for culture - will follow synovial crystal analysis and R foot wound culture Ddx: infection vs gouty effusion. No further procedure indicated by ortho at this time Transition antibiotic coverage to Augmentin and doxycycline x 7 days at discharge Will treat with Colchicine for suspected gout flare (nsaids contraindicated while on Eliquis) Recommend PCP and podiatry follow up closer to home Elevate foot, WBAT through heel History of A-fib Continue metoprolol succinate Eliquis resumed History of heart block Status post pacemaker Hypertension Continue amlodipine, losartan and metoprolol succinate History of BPH Continue Finasteride Care coordinated with Dr. Meza. Notes For Next Care Provider R foot cellulitis, cultures and synovial crystal analysis pending after bedside aspiration, follow up with podiatry Medication Changes From Visit Augmentin and doxy as well as colchicine course Admission HPI Per Admitting Provider 69-year-old male unassigned patient with past medical history significant for hypertension, A-fib, history of heart block status post pacemaker, history of BPH presents with right foot infection. Patient states had a wound in the posterior aspect of the right big toe going on for last 3 weeks. Since last Friday he noticed swelling and redness in the right big toe and it seemed better on Friday but then it got progressively worse and came to the hospital. He says he had a history of gout attack long-term back in his left big toe. He has neuropathy in lower extremities. But with ambulating is having a lot of pain. He had low-grade fevers couple of times during lst few days. Denies any headache or dizziness. No runny nose or sore throat. No cough. No earaches. Appetite is okay. No difficulty swallowing. No chest pains. Currently no shortness of breath. No nausea. No abdominal pain. Normal bowel and bladder movements. Resting comfortably and hemodynamics are okay. Past medical history. As mentioned above Past surgical history. Status post pacemaker. Status post TURP. Bunion surgery in the left big toe. Social history. No smoking. Drinks couple of drinks 4 times a week. No drug use currently. Did drugs couple of times in his 20s. Family history. Father had prostate cancer. Heart disease. Throat cancer. Admission Exam Per Admitting Provider General- Not in acute distress Head- atraumatic Eyes- PERRL. ENT- oropharynx clear Neck- supple, no JVD. Lungs- clear to auscultation no wheezing or crackles Heart- regular rhythm; no murmur, no gallop. Abdomen- normal bowel sounds, soft, nontender, no distension Extremities- right foot distal medial aspect warm and erythematous and right big toe is swollen Neuro- alert, oriented PERRL, no facial palsy; no dysarthria; moves extremities Discharge Exam Gen: WD/WN, NAD, resting in bed comfortably, A&Ox3 HEENT: Normocephalic, atraumatic, conjunctivae moist, sclerae anicteric, mucous membranes moist Lung: Clear to Auscultation bilaterally Heart: Regular rate, regular rhythm Abdomen: Soft, NT, ND +BS x 4 Extremities: + R great toe erythematous but localized to great toe and dorsum of foot, warm and edematous slightly improved from yesterday, less tender Skin: Warm, no rash Updated Medication List Medication Instructions Recorded Confirmed Type amlodipine 5 mg tablet 5 mg PO QAM 08/20/24 08/20/24 History apixaban 5 mg tablet (Eliquis) 5 mg PO BID 08/20/24 08/20/24 History cyanocobalamin (vitamin B-12) 5,000 mcg sublingual DAILY 08/20/24 08/20/24 History 5,000 mcg sublingual tablet (Vitamin B-12) finasteride 5 mg tablet 5 mg PO QAM 08/20/24 08/20/24 History losartan 100 mg tablet 100 mg PO QAM 08/20/24 08/20/24 History metoprolol succinate 50 mg 50 mg PO QPM 08/20/24 08/20/24 History tablet,extended release 24 hr vitamin B complex 1 cap PO QA 08/20/24 08/20/24 History amoxicillin 875 mg-potassium 1 tab PO BID #14 tabs 08/22/24 Rx clavulanate 125 mg tablet colchicine 0.6 mg tablet 0.6 mg PO BID #14 tabs 08/22/24 Rx doxycycline hyclate 100 mg capsule 100 mg PO BID #14 caps 08/22/24 Rx Hospital Stay Data Consultations 08/20/24 20:06 ED Decision to Admit Stat 08/21/24 08:00 Consult Orthopedic Surgery Routine Diagnostic Imagining Performed 08/20/24 19:50 CT foot RT w con Stat Pending Results Patient Have Any Pending Studies at Discharge: Yes Discharge Instructions Given to Patient (Per Discharging Provider) MEDICATION CHANGES: Please complete antibiotics (Augmentin twice a day x 7 days and Doxycycline twice a day x 7 days) for R foot infection Please complete Colchicine course (twice a day x 7 days) for suspected gout flare PENDING TEST RESULTS: Synovial crystal analysis and R foot wound culture pending - I will call you if culture results change treatment plan. RECOMMENDATIONS FOR FOLLOW-UP: Follow up with PCP within 1 week. Complete antibiotics and colchicine course in its entirety. Recommend follow up with podiatry in your area. Continue medication regimen as scheduled aside from changes noted above. OTHER INSTRUCTIONS: Seek medical attention if you have: * temperature above 101 * chest pain or trouble breathing * abdominal pain, nausea, vomiting * diarrhea, dark stools or bloody stools * any unanswered questions or concerns Call 911 if symptoms are severe. Please take good care of yourself. Call if you have any questions or problems. You can reach a [facility] hospitalist on duty at [facility] 24 hours a day by calling [phone]. Total Time Total Time Spent Total Time Spent (In Minutes): 50 Supervising Physician Co-Signing Physician Notes Patient seen and examined at bedside. Patient doing well today, no concerns, walking around room. On exam, right first digit erythematous, slightly tender to touch, erythema in localized region on/around toe, blister on back of toe. Suspect gout/pseudogout with overlying uncomplicated cellulitis vs. osteoarthritis with overlying uncomplicated cellulitis. Will treat empirically with colchicine, counseled on risks with eliquis patient accepts risk. Will send on 7 days of empiric abx coverage for cellulitis as well. Needs supervisor extrusion in next few weeks. I have seen and discussed the case with the collaborating advanced practitioner. I agree with the above H&P. I have reviewed and confirmed the patients medical history, the findings on physical examination, and the patients diagnosis and treatment plan with Lizette Raman PA-C and agree with the information documented. I spent a total of 20 minutes coordinating, documenting, and providing care for this patient excluding time spent in the performance of separately billed services. All of the aforementioned completed outside of collaborating with the assigned advanced practitioner for a full treatment plan. I have reviewed the advanced practitioner's documentation, and I agree with, and take responsibility for the plan of care
== END 2024-08-22 15:13 | disposition home or self-care (01) ==
LOC: ED 18:20 → 3N 21:01